=== PATIENT | male | born 1955 | race Caucasian/White ===

== ENCOUNTER 2019-01-17 13:49 | Emergency (ER) | payer OTHER, SELFPAY ==
[2019-01-17 14:07] VITALS: BP 140/90; PULSE 90; RESP 16; TEMP 36.3; O2SAT 97
--- NOTE | 2019-01-17 14:18 | DI.RAD_ITS ---
SYMPTOMS/DIAGNOSIS: DORSAL PAIN AFTER CAT BITE LEFT HAND: Three views. No bone or joint abnormality is identified. No radiopaque foreign bodies are seen in the soft tissues. IMPRESSION: No acute abnormality.
--- NOTE | 2019-01-17 14:18 | ED.GENADUL_ITS ---
Discharge Plan Disposition Patient Disposition: HOME Condition: Improving Discharge Details Chief Complaint: AnimalBite Clinical Impression: Cat bite of left hand Primary Care Provider: Mar,Local ED Provider: Kevin Carbone Home Meds and New Rx's Prescriptions: New amoxicillin-pot clavulanate 875-125 mg tablet 1 tab PO BID 10 Days Qty: 20 RF: 0 Discharge Instructions Instructions: Animal Bite (ED) Additional Instructions: Please follow-up with regular doctor for recheck in 7 to 10 days time. May apply warm soaks with Epsom salts to hand 2-3 times per day. Take antibiotics as prescribed for their entire course. Return for increased swelling, pain, or any other acute concerns Medical Decision Making 64-year-old male who was bitten by his own immunized cat at home on the left hand. Referred for x-ray to rule out underlying foreign body or fracture. HPI General Mode of arrival: ambulatory . Date/Time Provider Initiated Documentation: 01/17/19 13:56 . Limitations to Documentation: no limitations . Information obtained by: patient . History of Present Illness 64 year old M presents to the emergency department with the chief complaint of Left hand cat bite, described as mild, Quality is described as dull, and is localized to the left and upper extremity. Patient reports no radiation. Patient started experiencing this minute(s) and it has been constant. No relieving factors improve symptom(s), No exacerbating factors reported . Patient notes no other symptoms.. Patient did receive the following treatments prior to arrival, other (Cleansed) Related Data Home Medications Medication Instructions Recorded Confirmed amoxicillin-pot clavulanate 1 tab PO BID 10 Days #20 tab 01/17/19 Previous Rx's Medication Instructions Recorded amoxicillin-pot clavulanate 1 tab PO BID 10 Days #20 tab 01/17/19 General Stated Complaint: AnimalBite JANAE: 4 Review of Systems Review of Systems No fever or chills. Tetanus up-to-date. Cat is immunized. [facility] Social History Drug use: Rarely Substance use type: does not use Do you feel safe at home: Yes Do you feel safe in your relationship?: Yes Exam Narrative Exam Narrative: GEN: awake, alert, oriented 3. Pleasant, well groomed, interactive. HEAD: Normocephalic, atraumatic EYES: PERRL, EOMI EXT: Full ROM, 2 punctate puncture wounds dorsum of left hand. Range of motion is normal. 2+ radial pulse. Sensation intact throughout. Mild swelling present on the dorsum of the hand without erythema Neuro: Grossly normal neurologic exam, conversant, interactive. Psych: Speech fluent, thoughts congruent, affect normal Course Vital Signs Temperature 36.3 C L 01/17/19 14:07 Pulse 90 01/17/19 14:07 Respiratory Rate 16 01/17/19 14:07 Pulse Oximetry 97 01/17/19 14:07 Temperature 36.3 C L 01/17/19 14:07 Pulse 90 01/17/19 14:07 Respiratory Rate 16 01/17/19 14:07 Pulse Oximetry 97 01/17/19 14:07 Oxygen Delivery Method Room Air 01/17/19 14:07 Oxygen Flow Rate 0 01/17/19 14:07 Pain Level 5 01/17/19 14:07
[2019-01-17] MEDS: Amoxicillin 875/Clav. 125 TAB PO (14:41)
--- NOTE | 2019-01-17 16:53 | NUR.NOTE ---
Nursing Note: Faxed animal bite report to the [facility] Office. Spoke with Kemar Valdez and he is aware of the bite and contact information. Alvina Briceño.
== END 2019-01-17 15:15 | disposition home or self-care (01) ==
PROVIDERS: Emergency Provider Emergency Medicine
DX: S61.432A Puncture wound without foreign body of left hand, initial encounter (principal); W55.01XA Bitten by cat, initial encounter
CPT/HCPCS: 99283; 73130

== ENCOUNTER 2019-01-18 22:26 | Emergency (ER) | payer OTHER, SELFPAY ==
[2019-01-18 22:32] VITALS: BP 184/121; PULSE 93; RESP 18; TEMP 36.9; O2SAT 96
--- NOTE | 2019-01-18 23:27 | ED.GENADUL_ITS ---
Discharge Plan Disposition Patient Disposition: HOME Condition: Stable Discharge Details Chief Complaint: Recheck Clinical Impression: Infected cat bite of hand Primary Care Provider: Mar,Local ED Provider: Peterson Hanley Home Meds and New Rx's Prescriptions: New cephalexin [Keflex] 500 mg capsule 500 mg PO QID 7 Days Qty: 28 RF: 0 sulfamethoxazole-trimethoprim [Bactrim DS] 800-160 mg tablet 1 tab PO Q12H 7 Days Qty: 14 RF: 0 Discontinued amoxicillin-pot clavulanate 875-125 mg tablet 1 tab PO BID 10 Days Qty: 20 RF: 0 Discharge Instructions Instructions: Animal Bite (ED), Wound Infection (ED) Additional Instructions: Return immediately to the emergency department for any new or significant worsening symptoms, you may also perform Epson salt soaks of your hand, and take antibiotic as prescribed until fully completed. If not seeing signs of improvement in the next 24 to 48 hours please also return to the emergency department as you may need IV antibiotics. Referrals: [facility] Emergency Dept. [Outside] - Return if symptoms worsen Discharge Data Discharge Date/Time-TO BE ENTERED AT DEPARTURE: 01/18/19 23:38 Medical Decision Making Patient presenting to the emergency department for recheck of cat bite. Patient states that he was seen and evaluated yesterday in the emergency department and placed on Augmentin. Patient is taken a total of 3 total doses of that medication but has noticed the hand become red and swollen with pain of movement of fingers. Patient states throughout the course of the day symptoms have not drastically or rapidly spread but have been persistent. Initially patient states that these had not been present. Physical exam shows normal range of motion of hand, moderate amount of edema and erythema to the dorsal aspect of the hand, and 2 superficial puncture wounds noted. No purulence is noted, no fluctuance, no induration. I doubt abscess at this time but I am concerned for symptoms being present and worsening in spite of patient taking antibiotics as recommended. Otherwise patient has no systemic signs of illness, is not hypotensive, heart rate below 100, and afebrile. Due to this I do not feel that patient requires IV antibiotics but I do feel it would be prudent to switch patient's antibiotics. Patient was placed upon Keflex and Bactrim, encouraged to continue to do Epson salt soaks of the wound, and to return if not seeing signs of improvement in the next 24 to 48 hours. Patient seems very reasonable to return for any this. I doubt any tenosynovitis, deeper infection, or systemic illness. After discussion of diagnosis and plan of care patient has no further needs, questions, or concerns and states clear understanding to return to the emergency department for any worsening symptoms. HPI General Mode of arrival: ambulatory . Date/Time Provider Initiated Documentation: 01/18/19 22:43 . Limitations to Documentation: no limitations . Information obtained by: patient, RN notes reviewed and old records reviewed . History of Present Illness 64 year old M presents to the emergency department with the chief complaint of Cat bite to left hand, recheck, described as moderate, with intensity rated at 8. Quality is described as aching, and is localized to the left and upper extremity. Patient started experiencing this day(s) (3) and it has been constant. Patient notes no other symptoms.. Related Data Home Medications Medication Instructions Recorded Confirmed cephalexin [Keflex] 500 mg PO QID 7 Days #28 cap 01/18/19 sulfamethoxazole-trimethoprim 1 tab PO Q12H 7 Days #14 tab 01/18/19 [Bactrim DS] Previous Rx's Medication Instructions Recorded cephalexin [Keflex] 500 mg PO QID 7 Days #28 cap 01/18/19 sulfamethoxazole-trimethoprim 1 tab PO Q12H 7 Days #14 tab 01/18/19 [Bactrim DS] Allergies Allergy/AdvReac Type Severity Reaction Status Date / Time No Known Allergies Allergy Unverified 01/18/19 22:34 General Stated Complaint: Recheck JANAE: 4 Review of Systems Constitutional Denies chills and Denies fever(s) Cardiovascular Denies chest pain and Denies dyspnea Respiratory Denies dyspnea Gastrointestinal Denies abdominal pain, Denies nausea and Denies vomiting Integumentary/Breasts Reports as per HPI, Reports erythema and Reports skin swelling Neurologic Denies sensory deficit PFSH Medical History Cat bite of hand (Acute) Social History Smoking/Tobacco Use Status: Never Drug use: Rarely Substance use type: does not use Do you feel safe at home: Yes Do you feel safe in your relationship?: Yes Exam Const General: cooperative, no acute distress and not ill appearing Orientation: alert, awake and oriented x3 HENMT Mouth: moist mucous membranes Resp Effort & Inspection: normal respiratory effort, able to speak in complete sentences and no respiratory distress Cardio Rate: regular rate Rhythm: regular rhythm Neuro General: alert, awake, oriented x3, moves all extremities and no focal motor deficits Sensory Exam: no sensory deficits noted Extrem General: normal exam except as noted Left upper extremity: hand Details: normal capillary refill, neuromotor exam normal, neurosensory exam normal, tendon exam normal, tenderness Location: of the dorsal hand, normal ROM of fingers, warmth Location: of the dorsal hand, swelling Location: of the dorsal hand and puncture wound (To dorsal hand) Course Vital Signs Temperature 36.9 C 01/18/19 22:32 Pulse 93 H 01/18/19 22:32 Respiratory Rate 18 01/18/19 22:32 Blood Pressure 184/121 H 01/18/19 22:32 Pulse Oximetry 96 01/18/19 22:32 Temperature 36.9 C 01/18/19 22:32 Temperature Source Tympanic 01/18/19 22:32 Pulse 93 H 01/18/19 22:32 Respiratory Rate 18 01/18/19 22:32 Respiratory Effort Non-Labored 01/18/19 22:35 Blood Pressure 184/121 H 01/18/19 22:32 Pulse Oximetry 96 01/18/19 22:32 Pain Level 8 01/18/19 22:32
[2019-01-18] MEDS: Sulfameth/Trimeth DS TAB 1 TAB PO ×2 (23:33→23:34)
[2019-01-18] MEDS: Cephalexin 500 MG CAP 1000 MG PO (23:33)
[2019-01-18] MEDS: Cephalexin 500 MG CAP PO (23:33)
== END 2019-01-18 23:38 | disposition home or self-care (01) ==
PROVIDERS: Emergency Provider Nurse Practitioner Family
DX: S61.452D Open bite of left hand, subsequent encounter (principal); W55.01XD Bitten by cat, subsequent encounter
CPT/HCPCS: 99281